=== PATIENT | female | born 1995 | race African-American/Black ===

== ENCOUNTER 2016-07-12 07:36 | Emergency (ER) | payer SELFPAY ==
[~2016-07-12] VITALS: Ht 142.2 cm; Wt 47.5 kg
[~2016-07-12 07:36] MED LIST: CYCL1PAK PO; DICL75 PO; KETO10 PO; ORPH100T PO
[2016-07-12 07:38] VITALS: BP 122/70; PULSE 77; RESP 14; TEMP 98.2; O2SAT 98
[2016-07-12] MEDS ORDERED: DOXY1CAP91 PO (07:53)
--- NOTE | 2016-07-12 08:28 | PD ---
HPI Chief Complaint: Abdominal Pain Time Seen by Provider: 07:56 Travel History International Travel<30 days: No Contact w/Intl Traveler<30days: No Traveled to known affect area: No History of Present Illness HPI The patient was seen and examined in the presence of the nurse. This patient complains of pelvic cramping. She was seen at [facility] 2 days ago and started on doxycycline after evaluation. Patient reports that she still has the cramping. Severity is mild to moderate. No alleviating factors. She denies vaginal discharge or fever or vomiting or diarrhea or constipation. Duration is 4 days PFSH Past Medical History Asthma: Yes Diminished Hearing: No Respiratory: Yes (asthma) ?: Not LMP: 06/26/16 : 0 Social History Alcohol Use: No Tobacco Use: No Substance Use: No Allergies-Medications (Allergen,Severity, Reaction): Coded Allergies: No Known Allergies (Unverified , 01/18/15) Reported Meds & Prescriptions Reported Meds & Active Scripts Active Reported Doxycycline (Doxycycline (Monohydrate)) 100 Mg Cap 100 Mg PO BID Review of Systems General / Constitutional: No: Fever Eyes: No: Visual changes HENT: No: Headaches Cardiovascular: No: Chest Pain or Discomfort Respiratory: No: Shortness of Breath Gastrointestinal: No: Abdominal Pain Genitourinary: Positive: Pelvic Pain, No: Dysuria Musculoskeletal: No: Pain Skin: No Rash Neurologic: No: Weakness Psychiatric: No: Depression Endocrine: No: Polydipsia Hematologic/Lymphatic: No: Easy Bruising Physical Exam Narrative GENERAL: Well-nourished, well-developed patient in no apparent distress. SKIN: Focused skin assessment reveals no rash and nodules. Skin is Warm and dry. HEAD: Atraumatic. Normocephalic. EYES: Pupils equal and round. No scleral icterus. No injection or drainage. ENT: No nasal bleeding or discharge. Mucous membranes pink and moist. NECK: Trachea midline. No JVD. CARDIOVASCULAR: Regular rate and rhythm. No murmur appreciated. RESPIRATORY: No accessory muscle use. Clear to auscultation. Breath sounds equal bilaterally. GASTROINTESTINAL: Abdomen soft, non-tender, nondistended. Hepatic and splenic margins not palpable. MUSCULOSKELETAL: No obvious deformities. No clubbing. No cyanosis. No edema. NEUROLOGICAL: Awake and alert. No obvious cranial nerve deficits. Motor grossly within normal limits. Normal speech. PSYCHIATRIC: Appropriate mood and affect; insight and judgment normal. Pelvic: Speculum exam reveals no blood or discharge in the vault. She does have some cervical motion tenderness. No adnexal mass. Data Data Last Documented VS Vital Signs Date Time Temp Pulse Resp B/P Pulse Ox O2 Delivery O2 Flow Rate FiO2 07/12/16 07:38 98.2 77 14 122/70 98 MDM Medical Decision Making Medical Screen Exam Complete: Yes Emergency Medical Condition: Yes Medical Record Reviewed: Yes Differential Diagnosis PID, ectopic , cervicitis Narrative Course I have reviewed the patient's electronic medical record. Patient has normal vital signs and no objective findings on exam. There is some tenderness with cervical motion but otherwise normal exam Patient received antibiotic therapy and is taking it now I recommend she follow up with her [facility] who she is instructed to call Wednesday as well as continue her antibiotics Urine here is negative Presentation not consistent with appendicitis Her pain clearly reproducible with cervical motion Diagnosis Primary Impression: Pelvic pain Additional Instructions: Follow-up with your [employer] physician Finish her antibiotics Med/Other Pt SpecificInfo: Other Disposition: DISCHARGE HOME Condition: Stable Lalo Fong MD Jul 12, 2016 08:28
== END 2016-07-12 09:34 | disposition home or self-care (01) ==
LOC: NEPC 07:36
DX: R10.2 Pelvic and perineal pain (principal); J45.909 Unspecified asthma, uncomplicated
CPT/HCPCS: 99283